=== PATIENT | male | born 1990 | race Caucasian/White ===

== ENCOUNTER 2021-10-31 17:33 | Emergency (ER) | payer MEDICAID ==
[~2021-10-31] VITALS: Ht 165.1 cm; Wt 71.2 kg
[2021-10-31 17:36] VITALS: BP_SYST 146
--- NOTE | 2021-10-31 17:36 | NUR ---
Patient to ER bed 8 to gown for evaluation. Side rails up.
--- NOTE | 2021-10-31 17:45 | NUR ---
Pt brought by self ,A&Ox4, pt presents to ER with R testicular pain since yesterday after lifting weight at work, skin pink and warm, cap refill <3, VSS, respirations even and unlabored, will cont to monitor.
--- NOTE | 2021-10-31 17:56 | NUR ---
ER at bedside examining patient.
[2021-10-31 18:20] VITALS: BP_SYST 146
--- NOTE | 2021-10-31 18:21 | NUR ---
Patient given written and verbal discharge instructions and verbalizes understanding. DR. JACY RUBI MD discussed with patient the results and treatment provided. Patient in stable condition. ID arm band removed. Patient educated on pain management and to follow up with PMD. Pain Scale 0/10 Opportunity for questions provided and answered. Medication side effect fact sheet provided.
== END 2021-10-31 18:21 | disposition home or self-care (01) ==
LOC: SED 17:33
DX: K40.90 Unilateral inguinal hernia, without obstruction or gangrene, not specified as recurrent (principal)
CPT/HCPCS: 99281